=== PATIENT | female | born 1965 | race Caucasian/White ===

== ENCOUNTER 2024-06-20 00:26 | Observation (INO) | payer BC ==
[~2024-06-20] VITALS: Ht 165.1 cm; Wt 72.6 kg
[2024-06-20] VITALS (15 sets, daily range): BP systolic 107–152; BP diastolic 54–85
[~2024-06-20 00:26] MED LIST: BUTASPCAF PO
[2024-06-20 01:19] LABS: BASOPHILS ABSOLUTE AUTO 0.05 K/mm3 (0.00-0.23); BASOPHILS PERCENT AUTO 0 % (0-2); EOSINOPHILS ABSOLUTE AUTO 0.04 K/mm3 (0.00-0.68); EOSINOPHILS PERCENT AUTO 0 % (0-6); Hematocrit 44.8 % (33.0-51.0); Hemoglobin 15.2 g/dL (11.5-16.0); IMMATURE GRAN ABSOLUTE AUTO 0.09 K/mm3 (0.00-0.10); IMMATURE GRAN PERCENT AUTO 1 % (0-1); LYMPHOCYTES ABSOLUTE AUTO 2.59 K/mm3 (0.84-5.20); LYMPHOCYTES PERCENT AUTO 14 % (21-46); MONOCYTES ABSOLUTE AUTO 1.06 K/mm3 (0.16-1.47); MONOCYTES PERCENT AUTO 6 % (4-13); Mean Corpuscular HGB 32.3 pg (26.0-34.0); Mean Corpuscular HGB Conc 33.9 g/dL (31.5-36.5); Mean Corpuscular Volume 95 fL (80-100); Mean Platelet Volume 10.1 fL (9.1-12.4); NEUTROPHILS PERCENT AUTO 79 % (41-73); Platelet Count 297 K/mm3 (150-400); RDW Coefficient Variation 11.9 % (11.7-14.2); RDW Standard Deviation 41.6 fL (35.1-46.3); White Blood Cell Count 18.33 K/mm3 (4.00-11.30)
[2024-06-20 01:38] LABS: Albumin, Blood 4.2 g/dL (3.4-5.0); Albumin/Globulin Ratio 1.2 (0.8-1.8); Bilirubin, Total 0.3 mg/dL (0.1-1.0); Bun/Creatinine Ratio 17.8 (12.0-20.0); Calcium, Blood 9.8 mg/dL (8.5-10.1); Creatinine, Blood 1.01 mg/dL (0.40-1.00); Globulin, Blood 3.5 g/dL (2.2-4.0); Potassium, Blood 3.7 mmol/L (3.5-5.5); Total Protein, Blood 7.7 g/dL (6.4-8.2)
[2024-06-20] MEDS ORDERED: FentaNYL Citrate 50 MCG/ML 2 ML Injection IV ONE (02:15)
[2024-06-20] MEDS ORDERED: Ondansetron HCl 2 MG / ML 2ML Vial IV ONE (02:55)
[2024-06-20] MEDS ORDERED: NS 1,000 ML IV SCH (02:55)
[2024-06-20] MEDS ORDERED: HYDROmorphone HCl/Pf 1MG SYR IV ONE (03:20)
[2024-06-20] MEDS ORDERED: HYDROmorphone HCl/Pf 1MG SYR IV PRN (04:35)
[2024-06-20] MEDS ORDERED: Ondansetron HCl 2 MG / ML 2ML Vial IV PRN ×2 (04:35→11:55)
[2024-06-20] MEDS ORDERED: Metoclopramide HCl 5MG / ML 2ML Vial IV ONE (05:10)
[2024-06-20 05:18] LABS: International Normalized Ratio 0.97; Prothrombin Time Results 10.4 Sec (9.7-11.5)
[2024-06-20] MEDS ORDERED: Lactated Ringer's 1,000 ML IV SCH (08:05)
[2024-06-20] MEDS ORDERED: ALBU90OI INH (08:22)
[2024-06-20] MEDS ORDERED: IBUP400 PO (08:23)
--- NOTE | 2024-06-20 08:29 | NUR ---
IV SITE LAC FLUSHED WITH 10NS/PATENT.
[2024-06-20] MEDS ORDERED: Bupivacaine 0.5% HCl 5 MG/ML 30MLVIAL ONE (09:34)
[2024-06-20] MEDS ORDERED: FentaNYL Citrate 50 MCG/ML 2 ML Injection ONE ×3 (10:01→12:29)
[2024-06-20] MEDS ORDERED: propofoL 20 ML IV ONE (10:01)
[2024-06-20] MEDS ORDERED: Dexamethasone Sod Phos 10 MG/ML 1ML VIAL ONE (10:13)
[2024-06-20] MEDS ORDERED: Rocuronium Bromide 10 MG/ML 5ML Injection IV ONE (10:42)
[2024-06-20] MEDS ORDERED: Sugammadex Sodium 200 MG/2ML SDV (100 MG/ML) ONE (11:12)
[2024-06-20] MEDS ORDERED: Ondansetron HCl 2 MG / ML 2ML Vial ONE ×2 (11:12→12:25)
[2024-06-20] MEDS ORDERED: OxyCODONE HCL 5 MG TAB PO PRN (11:55)
[2024-06-20] MEDS ORDERED: Albuterol HFA200 ACT/6.7 GM INH INH PRN (12:00)
[2024-06-20] MEDS ORDERED: Ketorolac Tromethamine 15mg Vial IV PRN (12:00)
[2024-06-20] MEDS ORDERED: Acetaminophen 325 MG TABLET PO PRN (12:00)
[2024-06-20] MEDS ORDERED: Metoclopramide HCl 5MG / ML 2ML Vial ONE (12:11)
[2024-06-20] MEDS ORDERED: OXAYDO5 M3 PO (12:37)
--- NOTE | 2024-06-20 12:57 | NUR ---
PT ARRIVED TO 228 FROM PACU TRANSFERRED PT FROM [facility] TO BED. PT HAD SMALL AMOUNT OF EMESIS AFTER RECEIVING ZOFRAN IN PACU AT 1230. NOTIFIED DR PULIDO. PT REPORTS NAUSEA IS SLIGHTLY IMPROVED. VSS. LCA. HRR. BT HYPO X4. LAP INCISIONS X4 TO ABD WITH TISS ADHESIVE ARE CDI. ORIENTED TO USE OF CALL LIGHT AND FALL PREVENTION INSTRUCTIONS. FAMILY BEDSIDE.
[2024-06-20] MEDS ORDERED: Prochlorperazine Edisylate 10 mg Vial IV PRN (13:50)
[2024-06-20] MEDS ORDERED: Metoclopramide HCl 5MG / ML 2ML Vial IV PRN (13:50)
--- NOTE | 2024-06-20 17:26 | NUR ---
SUMMARY PT HAS BEEN NAUSEATED SINCE POST OP. MEDICATED PER ORDERS. PT NOW SLEEPING. VSS. FAMILY BEDSIDE. CALL LIGHT IN REACH. 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
--- NOTE | 2024-06-20 18:07 | NUR ---
PT WISHES TO DISCHARGE FEELING IMPROVED AFTER NAP. VOIDED AND ATE APPROXIMATLEY 30-40% OF HER DINNER. GETTING DRESSED AT THIS TIME.
--- NOTE | 2024-06-20 18:22 | NUR ---
DISCHARGED. REVIEWED DC INSTRUCTIONS W/PT; VERBALIZED UNDERSTANDING. IV DC'D. VSS. PT LEFT UNIT IN WC W/POSSESSIONS AND DC PAPERWORK IN HAND, ACCOMPANIED BY FAMILY.
== END 2024-06-20 18:19 | disposition home or self-care (01) ==
LOC: ER 00:26 → ERHOLD 00:27 → SURS 09:09
PROVIDERS: Emergency Medicine; Surgery; ADMIT Surgery
PROC: 0DN84ZZ Release Small Intestine, Percutaneous Endoscopic Approach (ICD-10-PCS; principal; 2024-06-20 08:30)
DX: K56.50 Intestinal adhesions [bands], unspecified as to partial versus complete obstruction (principal); Z88.0 Allergy status to penicillin
CPT/HCPCS: 74177; 80053; 83605; 85025; 85610; 85730; 86850; 86900; 86901; 96361; 96374-59; 96375; 99285-25; G0378; J0780; J1100; J1170; J2405; J2704; J2765; J3010; J7030; J7120; Q9967